=== PATIENT | male | born 1950 | race Caucasian/White ===

== ENCOUNTER 2022-10-13 22:11 | Emergency (ER) | payer MEDICARE, BC ==
[~2022-10-13] VITALS: Ht 180.3 cm; Wt 93.0 kg
--- NOTE | 2022-10-13 22:17 | NUR ---
PT AMB TO [facility] WITH STEADY GAIT WITH DOG BITE.
--- NOTE | 2022-10-13 22:31 | NUR ---
AT BEDSIDE FOR EVAL.
[2022-10-13] MEDS ORDERED: TDAP DIPH,PERTUSS,TET VAC/PF 0.5 ML DISP.SYRIN IM ONE ×2 (22:45→22:46)
[2022-10-13] MEDS ORDERED: AMOXICILLIN-CLAVUL 875-125MG TABLET PO ONE (22:45)
[2022-10-13] MEDS ORDERED: NEOMY/BACITRA/POLYMYXIN B OINT UD PACKET TP ONE (22:45)
[2022-10-13] MEDS ORDERED: BACITRACIN ZINC OINT 15 GM TUBE ONE (22:45)
[2022-10-13] MEDS ORDERED: AMOXICILLIN-CLAVUL 875-125MG TABLET ONE (22:46)
[2022-10-13] MEDS ORDERED: AMOX-430 PO (22:50)
--- NOTE | 2022-10-13 22:55 | NUR ---
PT'S DOG BITE ON RT LEG IRRIGATED WITH HYDROGEN PEROXIDEAND BACITRACIN APPIED.
[2022-10-13] MEDS ORDERED: BACITRACIN ZINC OINT 15 GM TUBE TOP SCH (23:00)
--- NOTE | 2022-10-13 23:15 | NUR ---
Patient discharged to home in stable condition. Written and verbal after care instructions given. Patient verbalizes understanding of instructions. Stressed follow up or return to ER for worsening s/s. PT AMB OUT WITH STEADY GAIT WITH .
[2022-10-13 23:20] VITALS: BP 139/73; TEMP 98; O2SAT 97
== END 2022-10-13 23:15 | disposition home or self-care (01) ==
LOC: ER 22:24
DX: S81.851A Open bite, right lower leg, initial encounter (principal); E78.5 Hyperlipidemia, unspecified; I10 Essential (primary) hypertension; Z79.2 Long term (current) use of antibiotics; W54.0XXA Bitten by dog, initial encounter; Y93.89 Activity, other specified; Y92.89 Other specified places as the place of occurrence of the external cause; Y99.8 Other external cause status
CPT/HCPCS: 90715; A4663